=== PATIENT | male | born 1945 | race Hispanic/Latino ===

== ENCOUNTER 2017-01-08 06:10 | Day surgery (SDC) | payer MEDICARE, OTHER ==
[2017-01-07 11:06] VITALS: BMI 35.2
[2017-01-08] MEDS ORDERED: Sodium Chloride 0.9% 20 ML IV ONE (07:10)
[2017-01-08] MEDS ORDERED: EPINEPHrine 1 mg/ml (1:1000) Inj ONE (07:10)
[2017-01-08] MEDS ORDERED: Lactated Ringer's 1,000 ML IV ONE (07:11)
[2017-01-08] MEDS ORDERED: Lidocaine 1% Inj (20ml) ONE (07:11)
--- NOTE | 2017-01-08 07:21 | CP.SDSHP ---
Same Day Surgery H & P - History Proposed Procedure: flexible bronchoscopy Pre-Op Diagnosis: abnormal CT chest - Previous Medical/Surgical History Cardiac: Hypertension, ASHD/CAD Pulmonary: Cough/URI Endocrine/Metabolic: Diabetes Pain: 0. No Pain Previous Surgical History: CABG - Allergies Allergies: Allergies Sulfa (Sulfonamide Antibiotics) Allergy (Verified 01/08/17 06:33) RASH hydromorphone HCl [From Dilaudid] Adverse Reaction (Verified 01/08/17 06:33) ANAPHYLAXIS - Physical Exam Vital Signs: Vital Signs 01/08/17 06:54 Temperature 98.1 F Pulse Rate 67 Respiratory 18 Rate Blood Pressure 113/57 L O2 Sat by Pulse 100 Oximetry Mental Status: Alert & Oriented x3 - {Optional Preform as Required} Other Pertinent Findings: The pharynx is pink and mucous membranes are moist. He does have an enhanced cough with examination of the posterior pharynx. No exudate is seen. No palpable lymphadenopathy. Neck is supple and trachea is midline. No neck vein distention or carotid bruit. No thyromegaly. Conjunctivae are pink and there is no scleral icterus. Nares are patent bilaterally. No bleeding or exudate. No dullness on chest percussion. Breath sounds are diminished bilaterally and no rales or wheezes are heard. No bronchial breathing or endoscopy. No rub. The heart sounds are distant. Rhythm is regular. No murmurs appreciated. The abdomen is soft and nontender with normal bowel sounds. There is no dependent edema of the lower extremities. Peripheral pulses are present in all 4 extremities. No cyanosis. Assessment - Impression Impression: Abnormal CT chest Pt. Evaluated Today:Candidate for Anesthesia & Procedure: Yes - Date & Time Date: 01/08/17 Time: 07:24 Short Stay Discharge - Short Stay Discharge Admitting Diagnosis/Reason for Visit: R91.8 Disposition: HOME/ ROUTINE Referrals: Jaylene Walker [Primary Care Provider] -
[2017-01-08] MEDS ORDERED: Propofol 10 mg/ml Inj (20 ML) ONE ×2 (07:30→07:31)
[2017-01-08] MEDS ORDERED: Midazolam 2 MG/2 ML VIAL ONE (07:31)
[2017-01-08] MEDS ORDERED: Ketamine 50 mg/ml Inj (10 ml) ONE (07:31)
[2017-01-08] MEDS ORDERED: Lidocaine 2% Jelly (5 ml) TOP ONE ×2 (07:31→08:07)
[2017-01-08] MEDS ORDERED: Naloxone 0.4 mg/ml Inj (Adult) ONE (07:59)
[2017-01-08] MEDS ORDERED: Lidocaine 1% Inj (20ml) TP ONE (08:05)
[2017-01-08] MEDS ORDERED: Lactated Ringer's 1,000 ML IV SCH (09:00)
--- NOTE | 2017-01-08 09:51 | CP.SDSHP ---
Same Day Surgery H & P - Allergies Allergies: Allergies Sulfa (Sulfonamide Antibiotics) Allergy (Verified 01/08/17 06:33) RASH hydromorphone HCl [From Dilaudid] Adverse Reaction (Verified 01/08/17 06:33) ANAPHYLAXIS - Physical Exam Vital Signs: Vital Signs 01/08/17 01/08/17 01/08/17 06:54 08:25 08:40 Temperature 98.1 F 98.2 F 98.0 F Pulse Rate 67 79 76 Respiratory 18 18 18 Rate Blood Pressure 113/57 L 114/62 117/64 O2 Sat by Pulse 100 96 97 Oximetry 01/08/17 01/08/17 01/08/17 08:55 09:10 09:25 Temperature 98.1 F Pulse Rate 73 71 70 Respiratory 19 20 18 Rate Blood Pressure 115/70 118/74 121/69 O2 Sat by Pulse 98 96 94 L Oximetry Short Stay Discharge - Short Stay Discharge Admitting Diagnosis/Reason for Visit: R91.8 Disposition: HOME/ ROUTINE Referrals: Jaylene Walker [Primary Care Provider] - Follow-up: Papo Singh MD Additional Instructions (Diet, Activity): Resume prior diet and activity. Call doctor's office Thursday after 11AM. Progress Note/Discharge Note with Instructions: Tolerated bronchoscopy well. Difficult procedure because of CHINTAN with oxygen desaturation at beginning of test. Problems overcome and procedure was successfully completed. Patient was seen in the recovery room, awake and comfortable. Spoke to patient's as well informing her of the details of the procedure. Instructed them both to call the office Thursday after 11AM for follow up. All meds and activities as well as diet return to normal pre-bronchoscopy. Stable for discharge to home.
--- NOTE | 2017-01-08 10:01 | RAD ---
HISTORY: post bronchoscopy COMPARISON: CT chest from 12/19/2016 FINDINGS: LUNGS: The right lung is clear. There is a left retrocardiac opacity. PLEURA: No significant pleural effusion identified, no pneumothorax apparent. CARDIOVASCULAR: The cardiomediastinal silhouette is normal. Status post median sternotomy. Atherosclerotic aortic arch calcifications are present. . OSSEOUS STRUCTURES: No significant abnormalities. VISUALIZED UPPER ABDOMEN: Normal. OTHER FINDINGS: None. IMPRESSION: Left retrocardiac opacity may represent atelectasis or pneumonia. Follow-up PA and lateral chest radiographs are recommended for further evaluation. Clear right lung. No large effusions.
[2017-01-08 10:34] VITALS: RESP 20
[2017-01-08 11:33] VITALS: O2SAT 95
[2017-01-08 13:31] VITALS: BP 127/83; PULSE 67; TEMP 97.8
--- NOTE | 2017-01-08 18:51 | CARD ---
APPROVED REPORT EKG Measurement Heart [id number] <Conclusion> Sinus rhythm with 1st degree AV block Left axis deviation Left bundle branch block Abnormal ECG
--- NOTE | 2017-01-09 11:13 | RAD ---
PROCEDURE: Intraoperative fluoroscopy HISTORY: ERCP COMPARISON: Not available TECHNIQUE: Intraoperative fluoroscopy was provided for ERCP. Total time of fluoroscopy was 24.8 seconds. FINDINGS: Two fluoroscopic spot films are submitted. Films are on file for review. IMPRESSION: Fluoroscopy provided.
== END 2017-01-08 12:40 | disposition home or self-care (01) ==
LOC: H.OPSURG 06:10
PROVIDERS: ATTEND Internal Medicine Pulmonary Disease
DX: R91.8 Other nonspecific abnormal finding of lung field (principal); I48.91 Unspecified atrial fibrillation; I25.10 Atherosclerotic heart disease of native coronary artery without angina pectoris; J44.9 Chronic obstructive pulmonary disease, unspecified; E11.9 Type 2 diabetes mellitus without complications; E78.5 Hyperlipidemia, unspecified; I10 Essential (primary) hypertension; G47.33 Obstructive sleep apnea (adult) (pediatric)
CPT/HCPCS: 31624; 71010; 74330; 82948; 87015; 87070; 87116; 87181; 87206; 88104; 88305; 93005; J0171; J2001; J2250; J2310; J2704; J3010; J7120

== ENCOUNTER 2017-08-10 10:11 | Day surgery (SDC) | payer MEDICARE, OTHER ==
[2017-08-10 10:34] VITALS: BMI 35.7
[2017-08-10 11:07] LABS: BASO # 0.1 K/uL (0.0-0.2); BASO % 0.8 % (0.0-2.0); EOS # 0.9 K/uL (0.0-0.7); EOS % 10.4 % (0.0-4.0); HEMATOCRIT 44.8 % (35.0-51.0); LYMPH # 1.6 K/uL (1.0-4.3); LYMPH % 18.5 % (20.0-40.0); MEAN CELL VOLUME 88.4 fl (80.0-94.0); MEAN CORPUSCULAR HEMOGLOBIN 29.2 pg (27.0-31.0); MONO # 0.7 K/uL (0.0-0.8); MONO % 7.8 % (0.0-10.0); NEUT # 5.4 K/uL (1.8-7.0); NEUT % 62.5 % (50.0-75.0); WHITE BLOOD COUNT 8.6 K/uL (4.8-10.8)
[2017-08-10 11:15] LABS: PARTIAL THROMBOPLASTIN TIME 29.4 Seconds (25.6-37.1)
[2017-08-10] MEDS ORDERED: Lidocaine 1% Inj (20ml) ONE (13:45)
[2017-08-10] MEDS ORDERED: Propofol 10 mg/ml Inj (20 ML) ONE (14:20)
[2017-08-10] MEDS ORDERED: Midazolam 2 MG/2 ML VIAL ONE (14:21)
[2017-08-10] MEDS ORDERED: Lactated Ringer's 1,000 ML IV ONE ×2 (14:55)
[2017-08-10] MEDS ORDERED: Lactated Ringer's 1,000 ML IV SCH (15:15)
--- NOTE | 2017-08-10 15:28 | CT ---
PROCEDURE: Date of procedure: 08/10/2017 Procedure: 1. CT-guided lung mass biopsy, CPT [address] Guidance for biopsy, [address] Medications: The patient was sedated by anesthesiologist along with physiologic monitoring. HISTORY: Left upper lobe lung nodule TECHNIQUE: Following informed consent and procedure time out, the patient was placed prone on the CT table and noncontrast CT scan was performed. Noncontrast CT scan confirmed the presence of a 17 mm stated spiculated left upper lobe lung nodule. A skin localizer was placed on the patient's LEFT back and a repeat CT scan was performed. The skin was marked, prepped, and draped in the usual sterile fashion. After the skin was anesthetized with lidocaine and the patient sedated by the anesthesiologist, a 20 gauge core needle was advanced percutaneously under direct CT guidance into the mass. Upon confirmation of needle position, two 20-gauge core specimens were obtained and sent for routine pathology. The needle was removed and a xeroform dressing was applied. A post biopsy CT scan showed no pneumothorax. IMPRESSION: CT guided core biopsy left lung nodule.
--- NOTE | 2017-08-10 16:00 | CP.SDSHP ---
Same Day Surgery H & P - History Proposed Procedure: CT guided bx Pre-Op Diagnosis: lung nodule - Allergies Allergies: Allergies Sulfa (Sulfonamide Antibiotics) Allergy (Verified 01/08/17 06:33) RASH hydromorphone HCl [From Dilaudid] Adverse Reaction (Verified 01/08/17 06:33) ANAPHYLAXIS - Physical Exam Vital Signs: Vital Signs 08/10/17 08/10/17 08/10/17 10:46 10:52 14:34 Temperature 98 F 97.4 F L Pulse Rate 88 88 75 Respiratory 18 18 Rate Blood Pressure 151/83 H 157/92 H O2 Sat by Pulse 95 99 Oximetry 08/10/17 08/10/17 08/10/17 14:55 15:03 15:10 Temperature 98.2 F 97 F L 98.2 F Pulse Rate 74 72 73 Respiratory 18 18 18 Rate Blood Pressure 136/72 144/58 L 135/71 O2 Sat by Pulse 98 100 98 Oximetry 08/10/17 08/10/17 15:25 15:40 Temperature Pulse Rate 74 70 Respiratory 20 20 Rate Blood Pressure 131/76 137/74 O2 Sat by Pulse 96 95 Oximetry - Impression Impression: Pt with BRENNAN long nodUle, [address] guided bx. Pt. Evaluated Today:Candidate for Anesthesia & Procedure: Yes (ASA 3 Malampati 4) Short Stay Discharge - Short Stay Discharge Admitting Diagnosis/Reason for Visit: R91.1 Referrals: Jaylene Walker [Primary Care Provider] -
--- NOTE | 2017-08-10 16:01 | PCM.SURG1 ---
Surgeon's Initial Post Op Note - Surgeon's Notes Surgeon: Douglas Pagan MD Spooler Operator: NONE Type of Anesthesia: IV Sedation Pre-Operative Diagnosis: Left lung nodule Operative Findings: CT showed a17 mm BRENNAN nodule. Post-Operative Diagnosis: Left lung nodule Operation Performed: CT guided biopsy Specimen/Specimens Removed: 20 g core x 2 Estimated Blood Loss: EBL {In ML}: 0 Blood Products Given: N/A Drains Used: No Drains Post-Op Condition: Good Date of Surgery/Procedure: 08/10/17 Time of Surgery/Procedure: 16:00
--- NOTE | 2017-08-10 16:42 | RAD ---
HISTORY: Status post left lung nodule bx COMPARISON: Frontal radiograph 01/08/2017. FINDINGS: LUNGS: Improved aeration is noted in the left base with limited left basilar atelectasis or infiltrate not excluded bilaterally. None is seen the right. PLEURA: Trace of pleural effusion is not excluded. None is seen the right. No pneumothorax bilaterally. CARDIOVASCULAR: Stable mild cardiomegaly. No pulmonary vascular derangement. Sternotomy wires again noted. OSSEOUS STRUCTURES: No significant abnormalities. VISUALIZED UPPER ABDOMEN: Normal. OTHER FINDINGS: None. IMPRESSION: Improving left basilar opacity with residual atelectasis or infiltrates not excluded the lateral left base. Trace of pleural effusion not excluded. Cardiomegaly appears stable.
[2017-08-10 17:57] VITALS: RESP 20; TEMP 98.1; O2SAT 96
[2017-08-10 18:01] VITALS: BP 148/79; PULSE 78
== END 2017-08-10 18:13 | disposition home or self-care (01) ==
LOC: H.OPSURG 10:11
PROVIDERS: ATTEND Internal Medicine Pulmonary Disease
DX: R91.1 Solitary pulmonary nodule (principal); Z88.5 Allergy status to narcotic agent; Z88.2 Allergy status to sulfonamides; Z87.892 Personal history of anaphylaxis
CPT/HCPCS: 32405; 36415; 71010; 77012; 82948; 85025; 85610; 85730; 88305; J2001; J2250; J2704; J3010; J7120